=== PATIENT | female | born 1975 ===

== ENCOUNTER 2020-12-30 09:09 | Outpatient (REF) | payer OTHER, SELFPAY ==
[2020-12-30 10:50] LABS: Hematocrit 34.5 % (37-47); Hemoglobin 11.2 g/dl (12.0-16.0); Mean Corpuscular HGB Conc 32.5 g/dl (31.0-35.0); Mean Corpuscular Hemoglobin 27.7 pg (27.0-33.0); Mean Corpuscular Volume 85.4 fL (80-98); Mean Platelet Volume 11.4 fL (9.4-12.3); Platelet Count 247 X10*3/uL (160-400); Red Blood Count 4.04 X10*6/uL (4.20-5.50); Red Cell Distribution Width 11.7 % (11.0-16.0)
[2020-12-30 11:25] LABS: Alanine Aminotransferase 9 U/L (0-31); Albumin Level 4.3 g/dL (3.5-5.0); Alkaline Phosphatase 111 U/L (39-117); Anion Gap 13 (12-20); Aspartate Amino Transferase 10 U/L (5-31); Bilirubin Direct < 0.2 mg/dL (0.0-0.5); Bilirubin Total 0.2 mg/dL (0.0-1.0); Blood Urea Nitrogen 19 mg/dL (9-16); Calcium 9.1 mg/dL (8.4-10.2); Carbon Dioxide 26 mmol/L (22-29); Chloride 101 mmol/L (96-108); Cholesterol 203 mg/dL; Estimated Glomerular Filt Rate 47; Glucose Fasting 387 mg/dL (60-99); HDL Cholesterol 33 mg/dL; LDL Cholesterol Calculated 116 mg/dl; Potassium 4.1 mmol/L (3.3-5.1); Sodium 136 mmol/L (135-145); Total Protein 7.3 g/dL (6.5-8.0); Triglycerides 271 mg/dL
[2020-12-30 11:45] LABS: TSH reflex Free T4 3.55 uIU/mL (0.32-4.0)
== END 2020-12-30 09:10 | disposition home or self-care (01) ==
LOC: HO.WFDLDS 09:09
PROVIDERS: Visit Provider Hospitalist
DX: Z00.01 Encounter for general adult medical examination with abnormal findings (principal)
CPT/HCPCS: 36415; 80048; 80061; 80076; 84443; 85027